=== PATIENT | male | born 1945 | race Caucasian/White ===

== ENCOUNTER 2016-10-12 10:13 | Outpatient (CLI) | payer MEDICARE ==
[2016-10-12 11:06] LABS: Hemoglobin A1c 5.8 % (4.0-6.0)
[2016-10-12 11:17] LABS: ALT (SGPT) 39 U/L (0-55); AST (SGOT) 21 U/L (5-34); Albumin 3.9 g/dL (3.4-4.8); Alkaline Phosphatase 74 U/L (40-150); Anion Gap 12 mmol/L (10-20); BUN (Urea Nitrogen) 22 mg/dL (8.4-25.7); Bilirubin, Direct 0.2 mg/dL (0.1-0.3); Bilirubin, Total 0.5 mg/dL (0.2-1.2); Calc. Creatinine Clearance 0 mL/min (70-130); Carbon Dioxide 26 mmol/L (23-31); Cardiac Risk 2.1 (Less than 4.5); Chloride 104 mmol/L (98-107); Cholesterol 110 mg/dL (< 200 Desired); Estimated GFR-MDRD Greater than 90; Glucose 106 mg/dL (83-110); HDL Cholesterol 52 mg/dL (>60 Neg Risk); LDL Cholesterol, Calculated 51 mg/dL; Potassium 4.1 mmol/L (3.5-5.1); Protein, Total 6.7 g/dL (5.8-8.1); Sodium 138 mmol/L (136-145); Triglycerides 36 mg/dL (Less than 150)
== END 2016-10-12 10:14 | disposition home or self-care (01) ==
LOC: MADLABBHPM 10:13
PROVIDERS: ATTEND Family Medicine
DX: E11.9 Type 2 diabetes mellitus without complications (principal)
CPT/HCPCS: 36415; 80048; 80061; 80076; 83036

== ENCOUNTER 2017-01-11 09:53 | Outpatient (CLI) | payer MEDICARE ==
[2017-01-11 10:26] LABS: #Basophils 0.1 thou/uL (0.0-0.2); #Eosinphils 0.2 thou/uL (0.0-0.7); #Monocytes 0.5 thou/uL (0.11-0.59); #Neutrophils 4.5 thou/uL (1.40-6.50); %Basophils 1.2 % (0.0-1.0); %Eosinophils 2.4 % (0.0-10.0); %Lymphocytes 27.6 % (21.0-51.0); %Monocytes 6.9 % (0.0-10.0); %Neutrophils 61.8 % (42.0-75.0); Hemoglobin 14.7 g/dL (14.0-18.0); Mean Corpuscular HGB CONC 34.3 g/dL (32.0-36.0); Mean Corpuscular Hemoglobin 32.6 pg (27.0-31.0); Mean Corpuscular Volume 94.9 fl (80.0-94.0); Mean Platelet Volume 7.6 fL (7.4-10.4); Platelet Count 207 thou/uL (130-400); Red Blood Cell (RBC) Count 4.51 mill/uL (4.70-6.10); White Blood Cell (WBC) Count 7.3 thou/uL (4.8-10.8)
[2017-01-11 10:35] LABS: Hemoglobin A1c 5.7 % (4.0-6.0)
[2017-01-11 11:08] LABS: ALT (SGPT) Less than 6 U/L (8-55); AST (SGOT) 14 U/L (5-34); Albumin 3.8 g/dL (3.4-4.8); Alkaline Phosphatase 65 U/L (40-150); Anion Gap 17 mmol/L (10-20); BUN (Urea Nitrogen) 28 mg/dL (8.4-25.7); Bilirubin, Direct 0.2 mg/dL (0.1-0.3); Bilirubin, Total 0.4 mg/dL (0.2-1.2); Calc. Creatinine Clearance 0 mL/min (70-130); Calcium 8.8 mg/dL (7.8-10.44); Carbon Dioxide 20 mmol/L (23-31); Cardiac Risk 2.1 (Less than 4.5); Chloride 106 mmol/L (98-107); Cholesterol 115 mg/dl (< 200 Desired); Estimated GFR-MDRD Greater than 90; Glucose 95 mg/dL (83-110); HDL Cholesterol 54 mg/dL (>60 Neg Risk); LDL Cholesterol, Calculated 51 mg/dL; Protein, Total 6.8 g/dL (5.8-8.1); Sodium 139 mmol/L (136-145); Triglycerides 50 mg/dL (Less than 150)
[2017-01-11 17:43] LABS: Creatinine, Urine 86.49 mg/dL (63-166); Microalbumin Urine Less than 1.0 mg/dL (0.5-50.0); Microalbumin/Creat Ratio 11.6 mg/g (Less than 30)
== END 2017-01-11 09:54 | disposition home or self-care (01) ==
LOC: MADLABBHPM 09:53
PROVIDERS: ATTEND Family Medicine
DX: E11.9 Type 2 diabetes mellitus without complications (principal)
CPT/HCPCS: 36415; 80048; 80061; 80076; 82043; 83036; 84443; 85025

== ENCOUNTER 2017-03-31 17:35 | Emergency (ER) | payer MEDICARE ==
[~2017-03-31 17:35] MED LIST: Sodium Chloride 0.9% 1,000 ML BAG ONE
[2017-03-31] MEDS ORDERED: Donnatal Elixir 16.2 MG/5 ML UDCUP ONE (18:13)
[2017-03-31] MEDS ORDERED: Lidocaine Viscous Sol 2% 15 ml UD Cup ONE (18:14)
[2017-03-31] MEDS ORDERED: Mag-Al Plus 1200 MG/1200 MG/120 MG/30 ML UDCUP ONE (18:14)
[2017-03-31] MEDS ORDERED: Famotidine In NaCl 20 mg/50 ml Premix Bag ONE (18:16)
[2017-03-31 18:45] LABS: #Basophils 0.1 thou/uL (0.0-0.2); #Eosinphils 0.1 thou/uL (0.0-0.7); #Lymphocytes 1.9 thou/uL (1.20-3.40); #Monocytes 0.5 thou/uL (0.11-0.59); #Neutrophils 4.2 thou/uL (1.40-6.50); %Basophils 0.8 % (0.0-1.0); %Eosinophils 1.3 % (0.0-10.0); %Lymphocytes 28.3 % (21.0-51.0); %Monocytes 7.4 % (0.0-10.0); %Neutrophils 62.3 % (42.0-75.0); Hemoglobin 14.4 g/dL (14.0-18.0); Mean Corpuscular HGB CONC 33.6 g/dL (32.0-36.0); Mean Corpuscular Hemoglobin 31.8 pg (27.0-31.0); Mean Corpuscular Volume 94.6 fl (80.0-94.0); Mean Platelet Volume 7.2 fL (7.4-10.4); Platelet Count 251 thou/uL (130-400); RBC Distribution Width 11.6 % (11.5-14.5); Red Blood Cell (RBC) Count 4.53 mill/uL (4.70-6.10); White Blood Cell (WBC) Count 6.8 thou/uL (4.8-10.8)
[2017-03-31 18:52] LABS: INR-International Normal Ratio 1.1; Prothrombin Time 14.6 SEC (12.0-14.7)
[2017-03-31 18:53] LABS: PTT 33.2 SEC (22.9-36.1)
[2017-03-31 19:02] LABS: ALT (SGPT) 23 U/L (8-55); AST (SGOT) 18 U/L (5-34); Albumin 3.9 g/dL (3.4-4.8); Alkaline Phosphatase 112 U/L (40-150); Anion Gap 13 mmol/L (10-20); BUN (Urea Nitrogen) 19 mg/dL (8.4-25.7); Bilirubin, Total 0.5 mg/dL (0.2-1.2); CK (CPK) 54 U/L (30-200); Calc. Creatinine Clearance 0 mL/min (70-130); Calcium 9.2 mg/dL (7.8-10.44); Carbon Dioxide 26 mmol/L (23-31); Chloride 103 mmol/L (98-107); Estimated GFR-MDRD Greater than 90; Globulin 3.2 g/dL (2.4-3.5); Glucose 180 mg/dL (83-110); Lipase 22 U/L (8-78); Potassium 4.4 mmol/L (3.5-5.1); Protein, Total 7.1 g/dL (5.8-8.1); Sodium 138 mmol/L (136-145)
[2017-03-31 19:05] LABS: CKMB 1.4 ng/mL (0-6.6); Troponin I Less than 0.010 ng/mL (< 0.028)
[2017-03-31 19:30] LABS: Bilirubin Small (Negative); Blood, Urine Negative (Negative); Clarity Hazy (Clear); Glucose, Urine (Dipstick) Negative (Negative); Leukocyte Negative (Negative); Nitrite Negative (Negative); Protein, Urine (Dipstick) Negative (Neg-Trace); Specific Gravity, Urine 1.025 (1.005-1.030); Urobilinogen 0.2 mg/dL (0.2-1.0); pH, Urine 5.5 (5.0-9.0)
--- NOTE | 2017-03-31 20:02 | RAD ---
AP VIEW OF THE CHEST: 03/31/17 INDICATION: Altered mental status. IMPRESSION: No acute cardiopulmonary abnormality. COMMENTS: The lungs are clear. The cardiomediastinal silhouette is within normal limits. There are mild vascul ar calcifications involving the aortic arch. There is scattered degenerative change. POS: [facility]
== END 2017-03-31 20:20 | disposition home or self-care (01) ==
LOC: MADERS 17:35
DX: F03.91 Unspecified dementia, unspecified severity, with behavioral disturbance (principal); I10 Essential (primary) hypertension; G20 Parkinson's disease
CPT/HCPCS: 36416; 71010; 80053; 81003; 82553; 83690; 84484; 85025; 85610; 85730; 87086; 93005; 96361; 96374; 36415-59; J7050

== ENCOUNTER 2017-04-04 12:29 | Outpatient (CLI) | payer MEDICARE ==
[2017-04-04 13:02] LABS: #Basophils 0.1 thou/uL (0.0-0.2); #Eosinphils 0.2 thou/uL (0.0-0.7); #Lymphocytes 2.7 thou/uL (1.20-3.40); #Monocytes 0.5 thou/uL (0.11-0.59); #Neutrophils 3.1 thou/uL (1.40-6.50); %Basophils 1.4 % (0.0-1.0); %Eosinophils 2.4 % (0.0-10.0); %Lymphocytes 40.7 % (21.0-51.0); %Monocytes 8.2 % (0.0-10.0); %Neutrophils 47.4 % (42.0-75.0); Hemoglobin 14.7 g/dL (14.0-18.0); Mean Corpuscular HGB CONC 32.9 g/dL (32.0-36.0); Mean Corpuscular Hemoglobin 31.6 pg (27.0-31.0); Mean Corpuscular Volume 95.9 fl (80.0-94.0); Mean Platelet Volume 7.3 fL (7.4-10.4); Platelet Count 227 thou/uL (130-400); RBC Distribution Width 11.8 % (11.5-14.5); Red Blood Cell (RBC) Count 4.65 mill/uL (4.70-6.10); White Blood Cell (WBC) Count 6.6 thou/uL (4.8-10.8)
[2017-04-04 13:19] LABS: ALT (SGPT) 22 U/L (8-55); AST (SGOT) 14 U/L (5-34); Alkaline Phosphatase 101 U/L (40-150); Anion Gap 11 mmol/L (10-20); BUN (Urea Nitrogen) 17 mg/dL (8.4-25.7); Bilirubin, Direct 0.2 mg/dL (0.1-0.3); Bilirubin, Total 0.4 mg/dL (0.2-1.2); Calc. Creatinine Clearance 0 mL/min (70-130); Calcium 9.2 mg/dL (7.8-10.44); Carbon Dioxide 28 mmol/L (23-31); Chloride 106 mmol/L (98-107); Cholesterol 118 mg/dl (< 200 Desired); Estimated GFR-MDRD Greater than 90; Glucose 106 mg/dL (83-110); HDL Cholesterol 60 mg/dL (>60 Neg Risk); LDL Cholesterol, Calculated 50 mg/dL; Protein, Total 6.8 g/dL (5.8-8.1); Sodium 141 mmol/L (136-145); Triglycerides 39 mg/dL (Less than 150)
[2017-04-04 13:23] LABS: Hemoglobin A1c 6.2 % (4.0-6.0)
== END 2017-04-04 12:30 | disposition home or self-care (01) ==
LOC: MADLABBHPM 12:29
PROVIDERS: ATTEND Family Medicine
DX: E11.9 Type 2 diabetes mellitus without complications (principal); I10 Essential (primary) hypertension; M62.562 Muscle wasting and atrophy, not elsewhere classified, left lower leg
CPT/HCPCS: 36415; 80048; 80061; 80076; 83036; 85025

== ENCOUNTER 2017-04-10 14:38 | Outpatient (CLI) | payer MEDICARE ==
--- NOTE | 2017-04-10 16:55 | CT ---
CT HEAD NONCONTRAST: History: Altered mental status. Dementia. CVA. Comparison: 11-14-15 FINDINGS: There is no evidence of acute intracranial hemorrhage or infarct. Diffuse cortical atrophy and chron ic ischemic small vessel disease are similar in appearance to the prior exam. Scattered lacunar infa rcts are stable. There is no mass effect or shift of midline structures. Visualized paranasal sinuse s remain well aerated. IMPRESSION: 1. Chronic type findings appear stable. No acute intracranial abnormalities are demonstrated on nonc ontrast CT head. POS: [facility]
== END 2017-04-10 14:39 | disposition home or self-care (01) ==
LOC: MADCT 14:38
PROVIDERS: ATTEND Family Medicine
DX: F03.90 Unspecified dementia, unspecified severity, without behavioral disturbance, psychotic disturbance, mood disturbance, and anxiety (principal)
CPT/HCPCS: 70450

== ENCOUNTER 2017-04-26 19:02 | Emergency (ER) | payer MEDICARE ==
[2017-04-26 19:19] LABS: #Basophils 0.1 thou/uL (0.0-0.2); #Eosinphils 0.1 thou/uL (0.0-0.7); #Lymphocytes 1.4 thou/uL (1.20-3.40); #Monocytes 0.7 thou/uL (0.11-0.59); #Neutrophils 9.4 thou/uL (1.40-6.50); %Basophils 0.7 % (0.0-1.0); %Eosinophils 0.4 % (0.0-10.0); %Lymphocytes 11.7 % (21.0-51.0); %Monocytes 6.4 % (0.0-10.0); %Neutrophils 80.8 % (42.0-75.0); Hemoglobin 15.1 g/dL (14.0-18.0); Mean Corpuscular HGB CONC 32.7 g/dL (32.0-36.0); Mean Corpuscular Hemoglobin 31.5 pg (27.0-31.0); Mean Corpuscular Volume 96.5 fl (80.0-94.0); Mean Platelet Volume 6.9 fL (7.4-10.4); Platelet Count 255 thou/uL (130-400); RBC Distribution Width 11.9 % (11.5-14.5); White Blood Cell (WBC) Count 11.6 thou/uL (4.8-10.8)
[2017-04-26 19:35] LABS: ALT (SGPT) 21 U/L (8-55); AST (SGOT) 16 U/L (5-34); Alkaline Phosphatase 82 U/L (40-150); Anion Gap 18 mmol/L (10-20); BUN (Urea Nitrogen) 24 mg/dL (8.4-25.7); Bilirubin, Total 0.4 mg/dL (0.2-1.2); Calc. Creatinine Clearance 0 mL/min (70-130); Calcium 9.5 mg/dL (7.8-10.44); Carbon Dioxide 23 mmol/L (23-31); Chloride 103 mmol/L (98-107); Estimated GFR-MDRD 79; Globulin 3.4 g/dL (2.4-3.5); Glucose 289 mg/dL (83-110); Potassium 4.3 mmol/L (3.5-5.1); Protein, Total 7.4 g/dL (5.8-8.1); Sodium 140 mmol/L (136-145)
[2017-04-26 20:02] LABS: Troponin I Less than 0.010 ng/mL (< 0.028)
[2017-04-26 20:11] LABS: CKMB 7.7 ng/mL (0-6.6)
[2017-04-26 20:45] LABS: Clarity Clear (Clear); Leukocyte Negative (Negative); Nitrite Negative (Negative); Protein, Urine (Dipstick) Negative (Neg-Trace)
[2017-04-26 20:46] LABS: Bilirubin Negative (Negative); Blood, Urine Small (Negative); Glucose, Urine (Dipstick) >=1000 mg/dL (Negative); Urobilinogen 0.2 mg/dL (0.2-1.0)
[2017-04-26 20:48] LABS: WBC/HPF 0-3 HPF (0-3)
[2017-04-26 20:49] LABS: Bacteria/HPF None Seen HPF (None Seen)
--- NOTE | 2017-04-26 21:36 | RAD ---
PORTABLE CHEST ONE VIEW: 04/26/17 at 7:40 p.m. HISTORY: Altered mental status. FINDINGS: Comparison is made with the exam of 03/31/17. The heart size is normal. The lungs are expanded without focal areas of consolidation, pneumothorax or pleural effusions. IMPRESSION: No radiographic evidence of acute cardiopulmonary process. POS: [facility]
--- NOTE | 2017-04-26 21:54 | CT ---
CT BRAIN WITHOUT CONTRAST: 04/26/17 HISTORY: Headache. FINDINGS: Comparison is made with exam of 04/10/17. Changes of cortical atrophy and chronic small vessel ischemic disease are again seen. The ventricula r size is stable and the basilar cisterns patent. Scattered vascular lacunar infarcts are also stabl e. No evidence of acute infarct, hemorrhage, midline shift or abnormal extra-axial fluid collections ar e seen. The bony calvarium is intact. The visualized paranasal sinuses and mastoid air cells are wel l aerated. IMPRESSION: No CT evidence of acute intracranial process. POS: [facility]
--- NOTE | 2017-04-26 23:11 | RAD ---
LUMBAR SPINE THREE VIEWS: 04/26/17 HISTORY: Low back pain. FINDINGS/IMPRESSION: There are degenerative changes with mild scoliosis. There is severe compression of T12 vertebral bod y, likely old. There is mild retrolisthesis of L2 over L3. POS: [facility]
== END 2017-04-26 22:27 | disposition short-term general hospital (02) ==
LOC: MADERS 19:02
DX: S30.0XXA Contusion of lower back and pelvis, initial encounter (principal); F03.90 Unspecified dementia, unspecified severity, without behavioral disturbance, psychotic disturbance, mood disturbance, and anxiety; R79.89 Other specified abnormal findings of blood chemistry; E11.9 Type 2 diabetes mellitus without complications; I10 Essential (primary) hypertension; G20 Parkinson's disease; Z86.73 Personal history of transient ischemic attack (TIA), and cerebral infarction without residual deficits; Z87.891 Personal history of nicotine dependence; Z79.82 Long term (current) use of aspirin; Z79.84 Long term (current) use of oral hypoglycemic drugs; W19.XXXA Unspecified fall, initial encounter; Z91.81 History of falling
CPT/HCPCS: 36415; 51701; 70450; 71010; 72100; 80053; 81003; 81015; 82553; 84484; 85025; 87040; 93005

== ENCOUNTER 2017-10-05 22:05 | Emergency (ER) | payer MEDICARE ==
[~2017-10-05 22:05] MED LIST changes: +Iopamidol 370 76% 125 ML VIAL FS ONE; -Sodium Chloride 0.9% 1,000 ML BAG ONE
[2017-10-05 22:36] LABS: #Basophils 0.1 thou/uL (0.0-0.2); #Eosinphils 0.5 thou/uL (0.0-0.7); #Lymphocytes 1.6 thou/uL (1.20-3.40); #Monocytes 0.7 thou/uL (0.11-0.59); #Neutrophils 4.2 thou/uL (1.40-6.50); %Basophils 1.5 % (0.0-1.0); %Eosinophils 6.7 % (0.0-10.0); %Lymphocytes 23.1 % (21.0-51.0); %Monocytes 10.1 % (0.0-10.0); %Neutrophils 58.7 % (42.0-75.0); Hemoglobin 12.5 g/dL (14.0-18.0); Mean Corpuscular HGB CONC 33.8 g/dL (32.0-36.0); Mean Corpuscular Volume 91.6 fl (80.0-94.0); Mean Platelet Volume 6.2 fL (7.4-10.4); Platelet Count 258 thou/uL (130-400); RBC Distribution Width 12.3 % (11.5-14.5); Red Blood Cell (RBC) Count 4.02 mill/uL (4.70-6.10); White Blood Cell (WBC) Count 7.1 thou/uL (4.8-10.8)
--- NOTE | 2017-10-05 22:47 | RAD ---
SINGLE VIEW OF THE CHEST 10/05/17 COMPARISON: 04/26/17 HISTORY: Dyspnea. FINDINGS: Single view of the chest shows a normal sized cardiomediastinal silhouette. There is no evidence of c onsolidation, mass, or pleural effusion. The bones are unremarkable. IMPRESSION: No evidence of acute cardiopulmonary disease. POS: [facility]
[2017-10-05 22:52] LABS: ALT (SGPT) 23 U/L (8-55); AST (SGOT) 16 U/L (5-34); Albumin 3.9 g/dL (3.4-4.8); Alkaline Phosphatase 113 U/L (40-150); Anion Gap 13 mmol/L (10-20); BUN (Urea Nitrogen) 20 mg/dL (8.4-25.7); Bilirubin, Total 0.3 mg/dL (0.2-1.2); Calc. Creatinine Clearance 0 mL/min (70-130); Carbon Dioxide 24 mmol/L (23-31); Chloride 109 mmol/L (98-107); Estimated GFR-MDRD Greater than 90; Globulin 3.5 g/dL (2.4-3.5); Glucose 291 mg/dL (83-110); Potassium 4.1 mmol/L (3.5-5.1); Protein, Total 7.4 g/dL (5.8-8.1); Sodium 142 mmol/L (136-145)
[2017-10-05 22:53] LABS: CKMB 5.1 ng/mL (0-6.6); Troponin I Less than 0.010 ng/mL (< 0.028)
[2017-10-06] MEDS ORDERED: HYDROcodone/Acetaminophen 5/325 mg Tablet ONE (01:35)
--- NOTE | 2017-10-06 08:11 | CT ---
PRELIMINARY REPORT/[facility]/EMERGENCY AFTER HOURS PROCEDURE: EXAM: CT Angiography Chest With Intravenous Contrast EXAM DATE/TIME: Exam ordered 10/05/2017 11:57 PM CLINICAL HISTORY: 71 years old, male; Pain; Chest pain; Radiating; Patient HX: Er pt states he is having pain to chest and legs R/O pe TECHNIQUE: Axial computed tomographic angiography images of the chest with intravenous contrast using pulmonary embolism protocol. All CT scans at this facility use one or more dose reduction techniques, viz.: aut omated exposure control; ma/kV adjustment per patient size (including targeted exams where dose is ma tched to indication; i.e. head); or iterative reconstruction technique. CONTRAST: 100 mL of ISOVUE 370 administered intravenously. COMPARISON: No relevant prior studies available. FINDINGS: Pulmonary arteries: Evaluation for PE is markedly limited by substantial respiratory motion which pre cludes reliable evaluation of most of the segmental and subsegmental pulmonary artery branches. Otherwise, there is no evidence of PE. Aorta: No acute findings. No thoracic aortic aneurysm. Lungs: Allowing for respiratory motion and expiratory phase imaging, the lungs are clear. No mass. Pleural space: Unremarkable. No significant effusion. No pneumothorax. Heart: Unremarkable. No cardiomegaly. No significant pericardial effusion. No evidence of RV dysfunct ion. Mediastinum: Small hiatal hernia. Esophagus is unremarkable. Bones/joints: No acute fracture. No dislocation. Soft tissues: Unremarkable. Lymph nodes: Unremarkable. No enlarged lymph nodes. Liver: Hepatic steatosis. Hepatic steatosis. IMPRESSION: Evaluation for PE is markedly limited by substantial respiratory motion which precludes reliable eval uation of most of the segmental and subsegmental pulmonary artery branches. Otherwise, there is no ev idence of PE. Thank you for allowing us to participate in the care of your patient. Dictated and Authenticated by: Jesse Fleming MD 10/06/2017 1:12 AM Central Time ([place] & [place]) FINAL REPORT CT PULMONARY ANGIOGRAM WITH IV CONTRAST AND 3D POSTPROCESSING: Date: 10/05/17 FINDINGS/IMPRESSION: I agree with the preliminary report given by Dr. Jesse Fleming of [facility]. POS: [facility]
== END 2017-10-06 02:55 | disposition short-term general hospital (02) ==
LOC: MADERS 22:05
DX: R07.9 Chest pain, unspecified (principal); R60.0 Localized edema; E11.9 Type 2 diabetes mellitus without complications; I10 Essential (primary) hypertension; G20 Parkinson's disease; F02.80 Dementia in other diseases classified elsewhere, unspecified severity, without behavioral disturbance, psychotic disturbance, mood disturbance, and anxiety; Z87.891 Personal history of nicotine dependence; Z79.82 Long term (current) use of aspirin; Z79.899 Other long term (current) drug therapy
CPT/HCPCS: 36415; 71045; 71275; 80053; 82553; 83735; 83880; 84484; 85025; 93005

== ENCOUNTER 2017-12-08 21:30 | Emergency (ER) | payer MEDICARE, OTHER ==
--- NOTE | 2017-12-08 22:21 | RAD ---
RIGHT HIP: 12/08/17 Two views. HISTORY: Fall with injury to right hip. No evidence of fracture identified. Minimal degenerative change. IMPRESSION: No acute abnormality. POS: [facility]
[2017-12-08] MEDS ORDERED: HYDROcodone/Acetaminophen 10/325 mg Tablet ONE (22:37)
[2017-12-08] MEDS ORDERED: Naproxen 500 MG TAB ONE (22:37)
== END 2017-12-09 00:20 ==
LOC: MADERS 21:30
DX: S70.01XA Contusion of right hip, initial encounter (principal); E11.9 Type 2 diabetes mellitus without complications; I10 Essential (primary) hypertension; F03.90 Unspecified dementia, unspecified severity, without behavioral disturbance, psychotic disturbance, mood disturbance, and anxiety; G20 Parkinson's disease; Z87.891 Personal history of nicotine dependence; Z79.82 Long term (current) use of aspirin; Z79.4 Long term (current) use of insulin; Z79.899 Other long term (current) drug therapy; W05.0XXA Fall from non-moving wheelchair, initial encounter

== ENCOUNTER 2017-12-17 07:25 | Emergency (ER) | payer MEDICARE ==
[2017-12-17 08:14] LABS: #Basophils 0.1 thou/uL (0.0-0.2); #Eosinphils 0.4 thou/uL (0.0-0.7); #Lymphocytes 1.8 thou/uL (1.20-3.40); #Monocytes 0.7 thou/uL (0.11-0.59); #Neutrophils 4.7 thou/uL (1.40-6.50); %Basophils 1.2 % (0.0-1.0); %Eosinophils 5.7 % (0.0-10.0); %Lymphocytes 23.1 % (21.0-51.0); %Neutrophils 60.9 % (42.0-75.0); Mean Corpuscular HGB CONC 32.7 g/dL (32.0-36.0); Mean Corpuscular Hemoglobin 28.5 pg (27.0-31.0); Mean Corpuscular Volume 86.9 fl (80.0-94.0); Mean Platelet Volume 6.4 fL (7.4-10.4); Platelet Count 232 thou/uL (130-400); RBC Distribution Width 13.6 % (11.5-14.5); Red Blood Cell (RBC) Count 4.55 mill/uL (4.70-6.10); White Blood Cell (WBC) Count 7.7 thou/uL (4.8-10.8)
[2017-12-17 08:26] LABS: Anion Gap 12 mmol/L (10-20); BUN (Urea Nitrogen) 12 mg/dL (8.4-25.7); Calc. Creatinine Clearance 0 mL/min (70-130); Calcium 9.3 mg/dL (7.8-10.44); Carbon Dioxide 26 mmol/L (23-31); Chloride 105 mmol/L (98-107); Estimated GFR-MDRD Greater than 90; Glucose 168 mg/dL (83-110); Sodium 138 mmol/L (136-145)
--- NOTE | 2017-12-17 08:37 | CT ---
CT HEAD NONCONTRAST: HISTORY: Head injury. COMPARISON: 04/26/17. FINDINGS: No evidence of acute intracranial hemorrhage or infarct. Chronic ischemic small-vessel disease is si milar in appearance to the prior exam. 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 There is no mass effect or shift of midline structures. IMPRESSION: No acute intracranial abnormalities are demonstrated on noncontrast CT head. POS: [facility]
--- NOTE | 2017-12-17 08:39 | CT ---
CT CERVICAL SPINE NONCONTRAST: HISTORY: Neck injury. FINDINGS: Vertebral body heights are maintained. No acute fracture or dislocation. Cervicothoracic junction i s intact. Severe multilevel degenerative changes are present, including severe central canal stenosi s at the C3-4 and C5-6 levels and multilevel foraminal stenosis. No acute fracture or dislocation. Calcification within the arterial structures. IMPRESSION: 1. Prominent degenerative changes cervical spine. No acute osseous abnormalities are demonstrated. 2. Atherosclerosis. POS: [facility]
== END 2017-12-17 10:40 ==
LOC: MADERS 07:25
DX: T14.8XXA Other injury of unspecified body region, initial encounter (principal); E11.9 Type 2 diabetes mellitus without complications; I10 Essential (primary) hypertension; G20 Parkinson's disease; Z79.4 Long term (current) use of insulin; Z79.899 Other long term (current) drug therapy; Z79.82 Long term (current) use of aspirin; W17.89XA Other fall from one level to another, initial encounter
CPT/HCPCS: 36415; 70450; 72125; 80048; 85025

== ENCOUNTER 2018-01-28 16:39 | Emergency (ER) | payer MEDICARE ==
[~2018-01-28 16:39] MED LIST changes: -Iopamidol 370 76% 125 ML VIAL FS ONE; +Sodium Chloride Irrig Solution 250 ML BOT ONE
--- NOTE | 2018-01-28 17:19 | RAD ---
LEFT WRIST THREE VIEWS: History: Injury with pain. FINDINGS/IMPRESSION: Degenerative changes are noted at the carpal and carpal metacarpal joints. No acute fracture identifi ed. POS: [facility]
== END 2018-01-28 18:05 | disposition home or self-care (01) ==
LOC: MADERS 16:39
DX: S00.83XA Contusion of other part of head, initial encounter (principal); S50.12XA Contusion of left forearm, initial encounter; S60.212A Contusion of left wrist, initial encounter; E11.9 Type 2 diabetes mellitus without complications; I10 Essential (primary) hypertension; Z87.891 Personal history of nicotine dependence; Z79.4 Long term (current) use of insulin; Z79.899 Other long term (current) drug therapy; Z79.82 Long term (current) use of aspirin; W19.XXXA Unspecified fall, initial encounter; Y92.129 Unspecified place in nursing home as the place of occurrence of the external cause
CPT/HCPCS: 36416